=== PATIENT | female | born 1940 | race Caucasian/White ===

== ENCOUNTER 2019-11-26 02:40 | Inpatient (IN) ==
[2019-11-26] MEDS ORDERED: Lidocaine PATCH 5% PATCH TRANSDERM ONE (03:46)
[2019-11-26] MEDS ORDERED: oxyCODONE/Acetamin 5/325 mg TAB PO ONE (03:47)
[2019-11-26] MEDS ORDERED: Morphine 2 MG/ML SYRINGE IV PRN (06:35)
[2019-11-26] MEDS ORDERED: NARATRIPTAN PO PRN (06:37)
[2019-11-26] MEDS ORDERED: Senna TAB 8.6 mg TAB PO PRN (06:59)
[2019-11-26 07:35] LABS: ABS Basophils 0.1 10^3/ul (0-0.2); ABS Lymphocytes 0.6 10^3/ul (1.0-4.8); ABS Monocytes 0.5 10^3/ul (0-0.8); ABS Neutrophils 11.3 10^3/ul (1.5-7.7); Eosinophil % 0.2 %; Hematocrit 32 % (35-47); Hemoglobin 10.9 g/dL (12.0-16.0); Lymphocyte % 4.8 %; Mean Corpuscular HGB Conc 34 g/dL (31-36); Mean Corpuscular Hemoglobin 27 pg (27-31); Mean Corpuscular Volume 79 fL (80-97); Mean Platelet Volume 6.9 fL (7.4-10.4); Nucleated Red Blood Cells % 0.1; Platelet Count 316 10^3/uL (150-450); Red Blood Count 4.08 10^6 /uL (3.70-4.87); Red Cell Distribution Width 16 % (10-15); White Blood Count 12.5 10^3/uL (3.5-10.8)
[2019-11-26 07:47] LABS: INR 1.02 (0.82-1.09)
[2019-11-26 07:55] LABS: Albumin 4.2 g/dL (3.2-5.2); Potassium 3.7 mmol/L (3.5-5.0); Total Bilirubin 0.4 mg/dL (0.2-1.0)
[2019-11-26 08:01] LABS: EGFR African American 99.6 (>60); EGFR Non-African American 82.3 (>60); Globulin 2.1 g/dL (2-4); Total Protein 6.3 g/dL (6.4-8.9)
[2019-11-26] MEDS ORDERED: DULoxetine DR 30 mg CAP PO SCH (09:00)
[2019-11-26] MEDS: NS 0.9% 1000 ml BAG 1,000 ML IV SCH ×2 (10:58→21:43)
[2019-11-26 13:44] LABS: Urine Appearance Cloudy; Urine Bilirubin Negative (Negative); Urine Blood Negative (Negative); Urine Color Amber; Urine Glucose Negative (Negative); Urine Ketones Negative (Negative); Urine Nitrite Negative (Negative); Urine Protein Negative (Negative); Urine Specific Gravity 1.015 (1.010-1.030); Urine Urobilinogen Negative (Negative)
[2019-11-26 14:04] LABS: Urine Bacteria Absent (Absent); Urine Red Blood Cell Trace(0-2/hpf) (Absent); Urine Squamous Epithelial Cell Present (Absent); Urine White Blood Cell 3+(>20/hpf) (Absent)
[2019-11-26] MEDS ORDERED: Lidocaine Patch REMOVE PATCH PATCH OFF ONE (16:00)
[2019-11-26] MEDS: DULoxetine DR 30 mg CAP PO SCH (21:45)
[2019-11-27] MEDS: Ondansetron 4 mg VIAL 2 MG/ML 2 ml VIAL IV PRN ×4 (05:24→21:59)
[2019-11-27] MEDS: NS 0.9% 1000 ml BAG 1,000 ML IV SCH (09:12)
[2019-11-27] MEDS: DULoxetine DR 30 mg CAP PO SCH (21:58)
[2019-11-28] MEDS: Ondansetron 4 mg VIAL 2 MG/ML 2 ml VIAL IV PRN ×2 (09:18→13:48)
[2019-11-28 10:05] LABS: ABS Eosinophils 0.1 10^3/ul (0-0.6); ABS Lymphocytes 0.8 10^3/ul (1.0-4.8); ABS Monocytes 0.5 10^3/ul (0-0.8); ABS Neutrophils 5.3 10^3/ul (1.5-7.7); Eosinophil % 1.3 %; Hematocrit 28 % (35-47); Hemoglobin 9.5 g/dL (12.0-16.0); Mean Corpuscular HGB Conc 34 g/dL (31-36); Mean Corpuscular Hemoglobin 26 pg (27-31); Mean Corpuscular Volume 78 fL (80-97); Mean Platelet Volume 6.7 fL (7.4-10.4); Platelet Count 271 10^3/uL (150-450); Red Blood Count 3.63 10^6 /uL (3.70-4.87); Red Cell Distribution Width 16 % (10-15); White Blood Count 6.8 10^3/uL (3.5-10.8)
[2019-11-28] MEDS: DULoxetine DR 30 mg CAP PO SCH (21:17)
[2019-11-29] MEDS: Ondansetron 4 mg VIAL 2 MG/ML 2 ml VIAL IV PRN ×2 (02:22→09:13)
[2019-11-29 09:12] LABS: ABS Basophils 0.1 10^3/ul (0-0.2); ABS Eosinophils 0.1 10^3/ul (0-0.6); ABS Monocytes 0.6 10^3/ul (0-0.8); ABS Neutrophils 5.1 10^3/ul (1.5-7.7); Eosinophil % 1.5 %; Hematocrit 28 % (35-47); Hemoglobin 9.5 g/dL (12.0-16.0); Mean Corpuscular HGB Conc 34 g/dL (31-36); Mean Corpuscular Hemoglobin 27 pg (27-31); Mean Corpuscular Volume 78 fL (80-97); Mean Platelet Volume 6.6 fL (7.4-10.4); Platelet Count 281 10^3/uL (150-450); Red Blood Count 3.55 10^6 /uL (3.70-4.87); Red Cell Distribution Width 16 % (10-15); White Blood Count 6.9 10^3/uL (3.5-10.8)
[2019-11-29 09:51] LABS: Calcium 8.1 mg/dL (8.6-10.3); Potassium 3.4 mmol/L (3.5-5.0)
[2019-11-29 09:56] LABS: BUN/Creatinine Ratio 21.2 (8-20)
[2019-11-29] MEDS ORDERED: Potassium Chlor 20 meq TAB.ER PO ONE (10:31)
[2019-11-29 12:02] VITALS: BP 123/71
== END 2019-11-29 13:10 | disposition home or self-care (01) | DRG 552 ==
LOC: ED 02:40 → MED 02:40
PROVIDERS: ADMIT Internal Medicine; ATTEND Internal Medicine